=== PATIENT | male | born 1990 | race Hispanic/Latino ===

== ENCOUNTER 2018-07-30 23:18 | Observation (INO) | payer MEDICAID, OTHER ==
[2018-07-30 23:44] VITALS: BMI 43.6
[2018-07-31] MEDS ORDERED: Sodium Chloride 0.9% 1,000 ML IV STA (00:37)
--- NOTE | 2018-07-31 00:37 | ED PDOC ---
Arrival/HPI - General Historian: Patient - History of Present Illness Narrative History of Present Illness (Text): 07/31/18 00:34 28 y/o male, no significant pmh, nkda, c/o lt. sided chin swelling acutely about 1 hour ago. Pt. stated that he was eating sandwich, after eating feeling the lt. sided chin swelling, no difficulty swallowing, admits pain with the swelling, no difficulty talking, tolerating po solid and fluid, no night sweat, no rash, no dizziness, no change in vision, no other medical or psychological complaints. <Darius Graham - Last Filed: 07/31/18 10:36> <Doc Reyes - Last Filed: 08/01/18 11:53> - General Chief Complaint: ENT Problem Time Seen by Provider: 07/31/18 00:21 Past Medical History - Provider Review Nursing Documentation Reviewed: Yes - Tetanus Immunization Tetanus Immunization: Unknown - Musculoskeletal/Rheumatological Hx Gout: Yes - Psychiatric Hx Depression: No Hx Emotional Abuse: No Hx Physical Abuse: No Hx Substance Use: No - Past Surgical History Past Surgical History: No Previous - Anesthesia Hx Anesthesia: No - Suicidal Assessment Feels Threatened In Home Enviroment: No <Darius Graham - Last Filed: 07/31/18 10:36> Family/Social History - Physician Review Nursing Documentation Reviewed: Yes Family/Social History: Unknown Family HX Smoking Status: Never Smoked Hx Alcohol Use: No Hx Substance Use: No Hx Substance Use Treatment: No <Darius Graham - Last Filed: 07/31/18 10:36> Allergies/Home Meds <Darius Graham - Last Filed: 07/31/18 10:36> <Doc Reyes - Last Filed: 08/01/18 11:53> Allergies/Adverse Reactions: Allergies No Known Allergies Allergy (Verified 07/30/18 23:44) Review of Systems - Review of Systems Constitutional: absent: Fatigue, Fevers Eyes: absent: Vision Changes ENT: Other (chin swelling and pain). absent: Hearing Changes, Sore Throat, Rhinorrhea Respiratory: absent: SOB, Cough Cardiovascular: absent: Chest Pain Gastrointestinal: absent: Abdominal Pain, Diarrhea, Nausea, Vomiting Musculoskeletal: absent: Arthralgias, Back Pain Skin: absent: Rash, Pruritis Neurological: absent: Headache, Dizziness Psychiatric: absent: Anxiety, Depression, Suicidal Ideation <Darius Graham Q - Last Filed: 07/31/18 10:36> Physical Exam Vital Signs Reviewed: Yes Vital Signs Temp Pulse Resp BP Pulse Ox 07/30/18 23:44 98.6 F 82 16 153/84 H 98 Temperature: Afebrile Blood Pressure: Hypertensive Pulse: Regular Respiratory Rate: Normal Appearance: Positive for: Well-Appearing, Non-Toxic, Comfortable Pain Distress: Moderate Mental Status: Positive for: Alert and Oriented X 3 - Systems Exam Head: Present: Atraumatic, Normocephalic Pupils: Present: PERRL Extroacular Muscles: Present: EOMI Conjunctiva: Present: Normal Mouth: Present: Moist Mucous Membranes, Normal Lips, Normal Tounge, Normal Teeth. No: Drooling, Trismus Pharnyx: No: ERYTHEMA, EXUDATE, TONSILS ENLARGED, Peritonsilar Swelling, Uvular Deviation, Muffled/Hoarse Voice, Strider, Soft Palate/Uvular Edema Nose (External): Present: Atraumatic. No: Abrasion, Contusion, Laceration, Lesions Nose (Internal): Present: Normal Inspection, No Active Bleeding. No: Rhinorrhea, Septal Deviation, Septal Hematoma, Epistaxis Neck: Present: Normal Range of Motion, Trachea Midline, Other (+lt. sided chin swelling). No: Meningeal Signs, MIDLINE TENDERNESS, Paraspinal Tenderness, Bru it Respiratory/Chest: Present: Clear to Auscultation, Good Air Exchange. No: Respiratory Distress, Accessory Muscle Use Cardiovascular: Present: Regular Rate and Rhythm, Normal S1, S2. No: Murmurs Abdomen: No: Tenderness, Distention, Peritoneal Signs, Rebound, Guarding Back: Present: Normal Inspection. No: CVA Tenderness, Midline Tenderness, Paraspinal Tenderness Upper Extremity: Present: Normal Inspection. No: Cyanosis, Edema Lower Extremity: Present: Normal Inspection. No: Edema Neurological: Present: GCS=15, CN II-XII Intact, Speech Normal, Motor Func Grossly Intact, Gait Normal, Memory Normal Skin: Present: Warm, Dry, Normal Color. No: Rashes Psychiatric: Present: Alert, Oriented x 3, Normal Insight, Normal Concentration <Darius Graham Q - Last Filed: 07/31/18 10:36> Vital Signs Temp Pulse Resp BP Pulse Ox 07/30/18 23:44 98.6 F 82 16 153/84 H 98 <Doc Reyes - Last Filed: 08/01/18 11:53> Medical Decision Making ED Course and Treatment: 07/31/18 00:37 Salivary gland obstruction vs. lymphenapathy vs. abscess vs. tumor? -Labs -CT soft tissue neck -IV toradol/NS -Observe and reassess 07/31/18 03:19 -CT soft tissue neck ordered -Labs show no acute findings -Case discussed with the current ER attending Dr. Reyes, he will follow up on the pending result and continue the care for the patient. - RAD Interpretation Radiology Orders: 07/31/18 00:33 NECK SOFT TISSUE W/CONTRAST [CT] Stat - Medication Orders Current Medication Orders: Ketorolac Tromethamine (Toradol) 30 mg IVP STAT STA Stop: 07/31/18 00:35 <Darius Graham - Last Filed: 07/31/18 10:36> ED Course and Treatment: CT Soft Tissue Neck reviewed, shows: Enlarged, enhancing left submandibular gland. Prominent surrounding inflammatory fat stranding. Overlying soft tissue edema. Mildly enlarged, prominent likely reactive lymph nodes the largest measuring 1.3 cm. Normal bilateral parotid glands. Normal bilateral dance artist spaces. Normal bilateral parapharyngeal spaces. Normal bilateral carotid spaces. Normal bilateral sublingual and right submandibular glands. Normal visualized nasopharynx. Normal retropharyngeal space. Normal perivertebral space. Normal visualized bilateral faucial tonsils. The visualized tongue, tongue base and oropharynx are normal. Normal epiglottis, bilateral vallecula and hypopharynx. The pre-epiglottic and paraglottic adipose spaces are normal. Normal visualized bilateral piriform sinuses, aryepiglottic folds, vocal cords, and arytenoid-cricoid articulations. Normal subglottic trachea. Normal bilateral lobes of the thyroid gland. Normal visualized pulmonary apices . Normal visualized paranasal sinuses. Normal visualized cervical spine. IMPRESSION: Left submandibular sialadenitis. Overlying cellulitis. Reactive inflammatory lymphadenopathy. No fluid collection or drainable formation. No evidence of sialolithiasis or obstructing stone. Electronically signed on Jul 31, 2018 4:18:04 AM EDT by: Ana Lilia Rm M.D., Certified by CHARLY, MSK, Neuroradiology 07/31/18 05:05 Case discussed with medical librarian registration manager, who is aware and agrees with plan. 07/31/18 05:[address] Silviano Kaye, who is aware and agrees with plan. Accepts pt in to hospitalist service. - Lab Interpretations Lab Results: 07/31/18 01:15 07/31/18 01:30 Lab Results 07/31/18 01:30: Sodium 140, Potassium 3.9, Chloride 107, Carbon Dioxide 26, A nion Gap 12, BUN 12, Creatinine 0.9, Est GFR ( Amer) > 60, Est GFR (Non- Af Amer) > 60, Random Glucose 101, Calcium 9.1, Total Bilirubin 0.8, AST 30, ALT 44, Alkaline Phosphatase 59, Total Protein 6.5, Albumin 3.8, Globulin 2.7, Albumin/Globulin Ratio 1.4 07/31/18 01:15: WBC 7.2, RBC 5.30, Hgb 15.8, Hct 44.7, MCV 84.3, MCH 29.8, MCHC 35.3, RDW 12.3, Plt Count 187, MPV 9.5, Gran % 51.7, Lymph % (Auto) 40.2 H, Clark % (Auto) 6.6 H, Eos % (Auto) 1.4 L, Baso % (Auto) 0.1, Gran # 3.70, Lymph # ( Auto) 2.9, Clark # (Auto) 0.5, Eos # (Auto) 0.1, Baso # (Auto) 0.01 - RAD Interpretation Radiology Orders: 07/31/18 00:33 NECK SOFT TISSUE W/CONTRAST [CT] Stat - Medication Orders Current Medication Orders: Discontinued Medications Sodium Chloride (Sodium Chloride 0.9%) 1,000 mls @ 999 mls/hr IV .Q1H1M STA Stop: 07/31/18 01:37 Last Admin: 07/31/18 01:25 Dose: 999 mls/hr eMAR Start Stop Document 07/31/18 01:25 LAC (Rec: 07/31/18 01:25 LAC [id number]) Intravenous Solution Start Date 07/31/18 Start Time 01:25 End Date 07/31/18 End time 02:25 Total Infusion Time 60 Ketorolac Tromethamine (Toradol) 30 mg IVP STAT STA Stop: 07/31/18 00:35 Last Admin: 07/31/18 01:25 Dose: 30 mg MAR Pain Assessment Document 07/31/18 01:25 LAC (Rec: 07/31/18 01:25 LAC [id number] Pain Reassessment Is this a pain reassessment? No IVP Administration Document 07/31/18 01:25 LAC (Rec: 07/31/18 01:25 LAC [id number]) Charges for Administration # of IVP Administrations 1 <Doc Reyes - Last Filed: 08/01/18 11:53> - PA / SAUSAGE INSPECTOR / Resident Statement ISABELLA has reviewed & agrees with the documentation as recorded. <Darius Graham - Last Filed: 07/31/18 10:36> - PA / SAUSAGE INSPECTOR / Resident Statement ISABELLA has reviewed & agrees with the documentation as recorded. ISABELLA has examined the patient and agrees with the treatment plan. <Doc Reyes - Last Filed: 08/01/18 11:53> Disposition/Present on Arrival - Present on Arrival Any Indicators Present on Arrival: No History of DVT/PE: No History of Uncontrolled Diabetes: No Urinary Catheter: No History of Decub. Ulcer: No History Surgical Site Infection Following: None - Disposition Have Diagnosis and Disposition been Completed?: Yes Disposition Time: 03:21 Patient Plan: Admission, Observation <Darius Graham - Last Filed: 07/31/18 10:36> <Doc Reyes - Last Filed: 08/01/18 11:53> - Disposition Diagnosis: Lymph node enlargement Disposition: HOSPITALIZED Condition: STABLE
[2018-07-31 01:27] LABS: BASO # 0.01 K/mm3 (0.0-2.0); BASO % 0.1 % (0.0-3.0); EOS # 0.1 (0.0-0.7); EOS % 1.4 % (1.5-5.0); GRAN # 3.7 (1.4-6.5); GRAN % 51.7 % (50.0-68.0); HEMOGLOBIN 15.8 g/dL (14.0-18.0); LYMPH # 2.9 (1.2-3.4); LYMPH % 40.2 % (22.0-35.0); MEAN CELL VOLUME 84.3 fl (80.0-105.0); MEAN CORPUSCULAR HEMOGLOBIN 29.8 pg (25.0-35.0); MEAN CORPUSCULAR HGB CONC 35.3 g/dl (31.0-37.0); MEAN PLATELET VOLUME 9.5 fl (7.0-11.0); MONO # 0.5 (0.1-0.6); MONO % 6.6 % (1.0-6.0); RBC 5.3 10^6/uL (3.5-6.1); RED CELL DISTRIBUTION WIDTH 12.3 % (11.5-14.5); WHITE BLOOD COUNT 7.2 10^3/uL (4.5-11.0)
[2018-07-31 01:53] LABS: ALB/GLOB RATIO 1.4 (1.1-1.8); ALBUMIN 3.8 g/dL (3.0-4.8); ALT/SGPT 44 U/L (7-56); AST/SGOT 30 U/L (17-59); BLOOD UREA NITROGEN 12 mg/dL (7-21); CALCIUM 9.1 mg/dL (8.4-10.5); GFR NON-AFRICAN AMERICAN > 60
[2018-07-31] MEDS ORDERED: Iohexol 350 MG/100 ML VIAL ONE (03:08)
--- NOTE | 2018-07-31 05:13 | CP.PCM.HP ---
History of Present Illness - History of Present Illness History of Present Illness: Shira Crandall, PGY1 Hospital H&P This is a 28M with PMH of gout presenting to the ED for left sided neck swelling that began at approximately 8pm. He was a eating a sandwich at that time and felt food getting stuck in his throat. He subsequently went to bed for an hour and woke with tenderness and swelling located along the left side of his neck. He denies having any similar symptoms in the past. He denies recent trauma or recent sickness. He denies CP, SOB, difficulty swallowing, blurry vision, hearing difficulties, headaches, fevers, chills, nausea, vomiting, back pain, abdominal pain, urinary complaints, numbness, tingling and diarrhea. 12 point ROS noted here, otherwise unremarkable. In ED, CT of the neck revealed left submandibular sialadenitis and overlying cellulitis. Patient given clindamycin and 1L NS. Symptoms of pain and tenderness had resolved at time of examination in ED. PMD: [place] PMH: gout SH: denies smoking, drinking and drugs Sx: Molar removed many years ago FH: denies All: NKDA Meds: takes indomethicin/colchicine during gout flares Present on Admission - Present on Admission Any Indicators Present on Admission: No Past Patient History - Tetanus Immunizations Tetanus Immunization: Unknown - Past Social History Smoking Status: Never Smoked - MUSCULOSKELETAL/RHEUMATOLOGICAL Hx Gout: Yes - PSYCHIATRIC Hx Depression: No Hx Emotional Abuse: No Hx Physical Abuse: No Hx Substance Use: No - SURGICAL HISTORY Hx Surgeries: No - ANESTHESIA Hx Anesthesia: No Meds Allergies/Adverse Reactions: Allergies Allergy/AdvReac Type Severity Reaction Status Date / Time No Known Allergies Allergy Verified 07/30/18 23:44 Physical Exam - Constitutional Appears: No Acute Distress - Head Exam Head Exam: ATRAUMATIC, NORMAL INSPECTION - Eye Exam Eye Exam: EOMI. absent: Periorbital swelling, Periorbital tenderness Pupil Exam: PERRL - ENT Exam ENT Exam: Mucous Membranes Moist, Normal External Ear Exam, Normal Oropharynx - Neck Exam Neck exam: Positive for: Full Rom. Negative for: Lymphadenopathy, Tenderness, Thyromegaly Additional comments: No swelling, erythematous lesions appreciated. No tenderness appreciated. No difficulty initiation swallow. No pain with swallowing. No salivary pooling appreciated - Respiratory Exam Respiratory Exam: Clear to Auscultation Bilateral, NORMAL BREATHING PATTERN. absent: Accessory Muscle Use, Respiratory Distress - Cardiovascular Exam Cardiovascular Exam: REGULAR RHYTHM, +S1, +S2 - GI/Abdominal Exam GI & Abdominal Exam: Normal Bowel Sounds. absent: Firm, Guarding - Extremities Exam Extremities exam: Positive for: normal inspection. Negative for: calf tenderness - Neurological Exam Neurological exam: Alert, CN II-XII Intact, Oriented x3 - Skin Skin Exam: Normal Color, Warm Results - Vital Signs Recent Vital Signs: Last Vital Signs Temp 98.6 F 07/30/18 23:44 Pulse 82 07/30/18 23:44 Resp 16 07/30/18 23:44 BP 153/84 H 07/30/18 23:44 Pulse Ox 98 07/30/18 23:44 - Labs Result Diagrams: 07/31/18 01:15 07/31/18 01:30 Labs: Laboratory Results - last 24 hr 07/31/18 07/31/18 01:15 01:30 WBC 7.2 RBC 5.30 Hgb 15.8 Hct 44.7 MCV 84.3 MCH 29.8 MCHC 35.3 RDW 12.3 Plt Count 187 MPV 9.5 Gran % 51.7 Lymph % (Auto) 40.2 H Caroline % (Auto) 6.6 H Eos % (Auto) 1.4 L Baso % (Auto) 0.1 Gran # 3.70 Lymph # (Auto) 2.9 Caroline # (Auto) 0.5 Eos # (Auto) 0.1 Baso # (Auto) 0.01 Sodium 140 Potassium 3.9 Chloride 107 Carbon Dioxide 26 Anion Gap 12 BUN 12 Creatinine 0.9 Est GFR ( Amer) > 60 Est GFR (Non-Af Amer) > 60 Random Glucose 101 Calcium 9.1 Total Bilirubin 0.8 AST 30 ALT 44 Alkaline Phosphatase 59 Total Protein 6.5 Albumin 3.8 Globulin 2.7 Albumin/Globulin Ratio 1.4 Assessment & Plan - Assessment and Plan (Free Text) Assessment: This is a 28M with PMH of gout presenting to the ED for left sided neck swelling that began at approximately 8pm. Plan: Sialadenitis: -CT soft tissue neck showed left submandibular sialadenitis, overlying cellulitis, reactive inflammatory lymphadenopathy -afebrile, WBC WNL -procalcitonin pending -continue clindamycin -blood culture pending -toradol prn for pain -fluids -ID on consult, Dr. Abbott Hx of gout: -currently controlled PPX with heparin and pepcid Patient seen and examined with attending, Dr. Tomasa Kaye
[2018-07-31] MEDS ORDERED: Sodium Chloride 0.9% 1,000 ML IV SCH (06:00)
[2018-07-31 07:55] LABS: BASO # 0.01 K/mm3 (0.0-2.0); BASO % 0.1 % (0.0-3.0); EOS # 0.1 (0.0-0.7); EOS % 1.9 % (1.5-5.0); GRAN # 3.06 (1.4-6.5); GRAN % 45.9 % (50.0-68.0); HEMOGLOBIN 15.2 g/dL (14.0-18.0); LYMPH % 44.8 % (22.0-35.0); MEAN CELL VOLUME 84.3 fl (80.0-105.0); MEAN CORPUSCULAR HEMOGLOBIN 29.5 pg (25.0-35.0); MEAN CORPUSCULAR HGB CONC 34.9 g/dl (31.0-37.0); MEAN PLATELET VOLUME 9.1 fl (7.0-11.0); MONO # 0.5 (0.1-0.6); MONO % 7.3 % (1.0-6.0); RBC 5.16 10^6/uL (3.5-6.1); RED CELL DISTRIBUTION WIDTH 12.2 % (11.5-14.5); WHITE BLOOD COUNT 6.7 10^3/uL (4.5-11.0)
[2018-07-31 08:26] LABS: ALB/GLOB RATIO 1.4 (1.1-1.8); ALBUMIN 3.7 g/dL (3.0-4.8); ALT/SGPT 46 U/L (7-56); AST/SGOT 29 U/L (17-59); BLOOD UREA NITROGEN 13 mg/dL (7-21); CALCIUM 8.7 mg/dL (8.4-10.5); GFR NON-AFRICAN AMERICAN > 60; HDL CHOLESTEROL 33 mg/dL (29-60)
[2018-07-31 08:37] LABS: LDL CHOLESTEROL 80 mg/dL (0-129)
--- NOTE | 2018-07-31 09:15 | CT ---
Date of service: 07/31/2018 PROCEDURE: CT NECK WITH CONTRAST HISTORY: lt. sided neck/chin swelling x 1 day with pain COMPARISON: None available. TECHNIQUE: CT of the neck with intravenous contrast. Coronal and sagittal reformats generated. Intravenous contrast dose: 150 mL Visipaque 320 Radiation dose: Total exam DLP = 1095.46 mGy-cm. This CT exam was performed using one or more of the following dose reduction techniques: Automated exposure control, adjustment of the mA and/or kV according to patient size, and/or use of iterative reconstruction technique. FINDINGS: NASOPHARYNX: Within normal limits. SUPRAHYOID NECK: No mass or abnormal enhancement in the oropharynx, oral cavity, parapharyngeal space and retropharyngeal space. INFRAHYOID NECK: No mass or abnormal enhancement in the larynx, hypopharynx, and supraglottic space. Vocal cords intact. MASS: None. GLANDS: There is asymmetric enlargement and enhancement in the left submandibular gland with significant surrounding inflammatory changes in the overlying fat. No evidence for ductal dilatation or mass. Parotid and right submandibular glands unremarkable. Normal size thyroid gland, without nodule. LYMPH NODES: Reactive left submandibular adenopathy. CERVICAL SPINE: No fracture or focal lesion. VASCULAR STRUCTURES: There is normal intravascular enhancement. OTHER FINDINGS: None. IMPRESSION: Findings are most compatible with left submandibular sialadenitis and reactive submandibular lymphadenopathy. A preliminary report was provided by [employer].
[2018-07-31 17:03] VITALS: BP 122/77; PULSE 79; RESP 20; TEMP 98.1; O2SAT 95
--- NOTE | 2018-07-31 18:21 | CP.PCM.CON ---
History of Present Illness - History of Present Illness History of Present Illness: Infectious Disease Consultation: July 31, 2018 28yo Male with PMH of gout presenting to the ED for left sided neck swelling that began at approximately 8pm. He was a eating a sandwich at that time and fel t food getting stuck in his throat. He subsequently went to bed for an hour and woke with tenderness and swelling located along the left side of his neck. He denies having any similar symptoms in the past. He denies recent trauma or recent sickness. He denies CP, SOB, difficulty swallowing, blurry vision, hearing difficulties, headaches, fevers, chills, nausea, vomiting, back pain, abdominal pain, urinary complaints, numbness, tingling and diarrhea. In ED, CT of the neck revealed left submandibular sialadenitis and overlying cellulitis. Patient given clindamycin and 1L NS. Symptoms of pain and tenderness had resolved at this time. PMHx: Gout PSHx: Molar removal several years ago Allergies: NKDA Social Hx: No tobacco, EtOH, or illicit drug use Active Medications Famotidine (Pepcid) 20 mg PO 1000,2200 BRITT Last Admin: 07/31/18 10:19 Dose: Not Given Heparin Sodium (Porcine) (Heparin) 5,000 units SC Q12 BRITT; Protocol Last Admin: 07/31/18 09:05 Dose: Not Given Clindamycin Phosphate 900 mg/ (Sodium Chloride) 106 mls @ 106 mls/hr IVPB Q8 BRITT; Protocol Last Admin: 07/31/18 13:01 Dose: 106 mls/hr Sodium Chloride (Sodium Chloride 0.9%) 1,000 mls @ 100 mls/hr IV .Q10H BRITT Last Admin: 07/31/18 06:25 Dose: 100 mls/hr Ketorolac Tromethamine (Toradol) 15 mg IVP Q6 PRN PRN Reason: Pain, severe (8-10) Family Hx: None given ROS: No fevers, chills, nausea, vomiting, diarrhea, headaches, dizziness, chest pain, abdominal pain, melena, hematuria, hematemesis, hematochezia, depresion, anxiety. Past Patient History - Tetanus Immunizations Tetanus Immunization: Unknown - Past Social History Smoking Status: Never Smoked - MUSCULOSKELETAL/RHEUMATOLOGICAL Hx Gout: Yes - PSYCHIATRIC Hx Depression: No Hx Emotional Abuse: No Hx Physical Abuse: No Hx Substance Use: No - SURGICAL HISTORY Hx Surgeries: No - ANESTHESIA Hx Anesthesia: No Meds Allergies/Adverse Reactions: Allergies Allergy/AdvReac Type Severity Reaction Status Date / Time No Known Allergies Allergy Verified 07/30/18 23:44 - Medications Medications: Current Medications Famotidine (Pepcid) 20 mg PO 1000,2200 BRITT Last Admin: 07/31/18 10:19 Dose: Not Given Heparin Sodium (Porcine) (Heparin) 5,000 units SC Q12 BRITT; Protocol Last Admin: 07/31/18 09:05 Dose: Not Given Clindamycin Phosphate 900 mg/ (Sodium Chloride) 106 mls @ 106 mls/hr IVPB Q8 BRITT; Protocol Last Admin: 07/31/18 13:01 Dose: 106 mls/hr Sodium Chloride (Sodium Chloride 0.9%) 1,000 mls @ 100 mls/hr IV .Q10H BRITT Last Admin: 07/31/18 06:25 Dose: 100 mls/hr Ketorolac Tromethamine (Toradol) 15 mg IVP Q6 PRN PRN Reason: Pain, severe (8-10) Physical Exam - Constitutional Appears: Non-toxic, No Acute Distress - Head Exam Head Exam: ATRAUMATIC, NORMOCEPHALIC - Eye Exam Eye Exam: EOMI, PERRL Pupil Exam: NORMAL ACCOMODATION, PERRL - ENT Exam ENT Exam: Mucous Membranes Moist, Normal External Ear Exam, TM's Normal Bilaterally - Neck Exam Neck exam: Positive for: Full Rom, Normal Inspection - Respiratory Exam Respiratory Exam: Clear to Auscultation Bilateral, NORMAL BREATHING PATTERN. absent: Rales, Rhonchi, Wheezes - Cardiovascular Exam Cardiovascular Exam: REGULAR RHYTHM, RRR, +S1, +S2 - GI/Abdominal Exam GI & Abdominal Exam: Normal Bowel Sounds, Soft. absent: Distended, Tenderness - Extremities Exam Extremities exam: Positive for: full ROM, normal inspection - Neurological Exam Neurological exam: Alert, CN II-XII Intact, Oriented x3 - Psychiatric Exam Psychiatric exam: Normal Affect, Normal Mood - Skin Skin Exam: Intact, Normal Color Results - Vital Signs Recent Vital Signs: Last Vital Signs Temp 98.1 F 07/31/18 16:59 Pulse 79 07/31/18 16:59 Resp 20 07/31/18 16:59 BP 122/77 07/31/18 16:59 Pulse Ox 95 07/31/18 16:59 - Labs Result Diagrams: 07/31/18 07:00 07/31/18 07:00 Labs: Laboratory Results - last 24 hr 07/31/18 07/31/18 07/31/18 01:15 01:30 07:00 WBC 7.2 RBC 5.30 Hgb 15.8 Hct 44.7 MCV 84.3 MCH 29.8 MCHC 35.3 RDW 12.3 Plt Count 187 MPV 9.5 Gran % 51.7 Lymph % (Auto) 40.2 H Cooper % (Auto) 6.6 H Eos % (Auto) 1.4 L Baso % (Auto) 0.1 Gran # 3.70 Lymph # (Auto) 2.9 Cooper # (Auto) 0.5 Eos # (Auto) 0.1 Baso # (Auto) 0.01 APTT Sodium 140 Potassium 3.9 Chloride 107 Carbon Dioxide 26 Anion Gap 12 BUN 12 Creatinine 0.9 Est GFR ( Amer) > 60 Est GFR (Non-Af Amer) > 60 Random Glucose 101 Hemoglobin A1c Calcium 9.1 Phosphorus Magnesium Total Bilirubin 0.8 AST 30 ALT 44 Alkaline Phosphatase 59 Total Protein 6.5 Albumin 3.8 Globulin 2.7 Albumin/Globulin Ratio 1.4 Triglycerides Cholesterol LDL Cholesterol Direct HDL Cholesterol Procalcitonin < 0.05 L 07/31/18 07/31/18 07/31/18 07:00 07:00 07:00 WBC 6.7 RBC 5.16 Hgb 15.2 Hct 43.5 MCV 84.3 MCH 29.5 MCHC 34.9 RDW 12.2 Plt Count 162 MPV 9.1 Gran % 45.9 L Lymph % (Auto) 44.8 H Cooper % (Auto) 7.3 H Eos % (Auto) 1.9 Baso % (Auto) 0.1 Gran # 3.06 Lymph # (Auto) 3.0 Cooper # (Auto) 0.5 Eos # (Auto) 0.1 Baso # (Auto) 0.01 APTT 33.6 Sodium 139 Potassium 4.0 Chloride 106 Carbon Dioxide 25 Anion Gap 12 BUN 13 Creatinine 1.0 Est GFR ( Amer) > 60 Est GFR (Non-Af Amer) > 60 Random Glucose 94 Hemoglobin A1c Calcium 8.7 Phosphorus 4.0 Magnesium 1.8 Total Bilirubin 1.2 AST 29 ALT 46 Alkaline Phosphatase 52 Total Protein 6.3 Albumin 3.7 Globulin 2.7 Albumin/Globulin Ratio 1.4 Triglycerides 182 H Cholesterol 125 L LDL Cholesterol Direct 80 HDL Cholesterol 33 Procalcitonin 07/31/18 07:00 WBC RBC Hgb Hct MCV MCH MCHC RDW Plt Count MPV Gran % Lymph % (Auto) Cooper % (Auto) Eos % (Auto) Baso % (Auto) Gran # Lymph # (Auto) Cooper # (Auto) Eos # (Auto) Baso # (Auto) APTT Sodium Potassium Chloride Carbon Dioxide Anion Gap BUN Creatinine Est GFR ( Amer) Est GFR (Non-Af Amer) Random Glucose Hemoglobin A1c 5.2 Calcium Phosphorus Magnesium Total Bilirubin AST ALT Alkaline Phosphatase Total Protein Albumin Globulin Albumin/Globulin Ratio Triglycerides Cholesterol LDL Cholesterol Direct HDL Cholesterol Procalcitonin Assessment & Plan - Assessment and Plan (Free Text) Assessment: 28 yo male with soft tissue swelling of the neck with CT showing left submandibular sialadenitis, overlying cellulitis, reactive inflammatory lymphad enopathy. Started on Clindamycin for antibiotic care. Agree with continuing on Clindamycin for treatment at this time. Supportive care. Thank you for allowing me to participate in the care of this patient, we will follow with you.
--- NOTE | 2018-08-01 07:19 | CP.PCM.DIS ---
<Luis Arce - Last Filed: 08/01/18 07:19> Provider - Provider Date of Admission: 07/31/18 04:53 Attending physician: Everton Ricardo MD Primary care physician: Jaylyn Hollis DO Consults: ID: Dr. [email or web address] Abbott Time Spent in preparation of Discharge (in minutes): 60 Hospital Course - Lab Results Lab Results: Most Recent Lab Values WBC 6.7 10^3/uL (4.5-11.0) 07/31/18 07:00 RBC 5.16 10^6/uL (3.5-6.1) 07/31/18 07:00 Hgb 15.2 g/dL (14.0-18.0) 07/31/18 07:00 Hct 43.5 % (42.0-52.0) 07/31/18 07:00 MCV 84.3 fl (80.0-105.0) 07/31/18 07:00 MCH 29.5 pg (25.0-35.0) 07/31/18 07:00 MCHC 34.9 g/dl (31.0-37.0) 07/31/18 07:00 RDW 12.2 % (11.5-14.5) 07/31/18 07:00 Plt Count 162 10^3/uL (120.0-450.0) 07/31/18 07:00 MPV 9.1 fl (7.0-11.0) 07/31/18 07:00 Gran % 45.9 % (50.0-68.0) L 07/31/18 07:00 Lymph % (Auto) 44.8 % (22.0-35.0) H 07/31/18 07:00 [place] % (Auto) 7.3 % (1.0-6.0) H 07/31/18 07:00 Eos % (Auto) 1.9 % (1.5-5.0) 07/31/18 07:00 Baso % (Auto) 0.1 % (0.0-3.0) 07/31/18 07:00 Gran # 3.06 (1.4-6.5) 07/31/18 07:00 Lymph # (Auto) 3.0 (1.2-3.4) 07/31/18 07:00 [place] # (Auto) 0.5 (0.1-0.6) 07/31/18 07:00 Eos # (Auto) 0.1 (0.0-0.7) 07/31/18 07:00 Baso # (Auto) 0.01 K/mm3 (0.0-2.0) 07/31/18 07:00 APTT 33.6 Seconds (25.1-36.5) 07/31/18 07:00 Sodium 139 mmol/L (132-148) 07/31/18 07:00 Potassium 4.0 mmol/L (3.6-5.0) 07/31/18 07:00 Chloride 106 mmol/L (98-107) 07/31/18 07:00 Carbon Dioxide 25 mmol/L (21-33) 07/31/18 07:00 Anion Gap 12 (10-20) 07/31/18 07:00 BUN 13 mg/dL (7-21) 07/31/18 07:00 Creatinine 1.0 mg/dl (0.8-1.5) 07/31/18 07:00 Est GFR ( Amer) > 60 07/31/18 07:00 Est GFR (Non-Af Amer) > 60 07/31/18 07:00 Random Glucose 94 mg/dL (70-110) 07/31/18 07:00 Hemoglobin A1c 5.2 % (4.2-6.5) 07/31/18 07:00 Calcium 8.7 mg/dL (8.4-10.5) 07/31/18 07:00 Phosphorus 4.0 mg/dL (2.5-4.5) 07/31/18 07:00 Magnesium 1.8 mg/dL (1.7-2.2) 07/31/18 07:00 Total Bilirubin 1.2 mg/dL (0.2-1.3) 07/31/18 07:00 AST 29 U/L (17-59) 07/31/18 07:00 ALT 46 U/L (7-56) 07/31/18 07:00 Alkaline Phosphatase 52 U/L (38-126) 07/31/18 07:00 Total Protein 6.3 g/dL (5.8-8.3) 07/31/18 07:00 Albumin 3.7 g/dL (3.0-4.8) 07/31/18 07:00 Globulin 2.7 gm/dL 07/31/18 07:00 Albumin/Globulin Ratio 1.4 (1.1-1.8) 07/31/18 07:00 Triglycerides 182 mg/dL (35-160) H 07/31/18 07:00 Cholesterol 125 mg/dL (130-200) L 07/31/18 07:00 LDL Cholesterol Direct 80 mg/dL (0-129) 07/31/18 07:00 HDL Cholesterol 33 mg/dL (29-60) 07/31/18 07:00 Procalcitonin < 0.05 NG/ML (0.19-0.49) L 07/31/18 07:00 - Hospital Course Hospital Course: 28M with PMH of gout presenting to the ED for left sided neck swelling that began at approximately 8pm on Thursday. He was a eating a sandwich at that time and felt food getting stuck in his throat. He subsequently went to bed for an hour and woke with tenderness and swelling located along the left side of his neck. He denied having any similar symptoms in the past. He denied any recent sickness or trauma. Patient denied CP, SOB, difficulty swallowing, blurry vision, hearing difficulties, headaches, fevers, chills, nausea, vomiting, back pain, abdominal pain, urinary complaints, numbness, tingling and diarrhea. CT soft tissue of the neck was done showing left submandibular sialadenitis. Patient was given medication for pain, started on Clindamycin and Infectious disease was consulted. Blood cultures were done and lab work was reviewed. Patients pain improved during his day yesterday and patient was discharged home late yesterday evening on clindamycin 3x a day for a total 10 day course. He was told to follow up with PMD and see a dentist as soon as possible. Discharge Exam - Head Exam Head Exam: ATRAUMATIC, NORMOCEPHALIC - Eye Exam Eye Exam: EOMI, Normal appearance, PERRL - ENT Exam ENT Exam: Mucous Membranes Moist, Normal External Ear Exam - Neck Exam Neck exam: Tenderness - Respiratory Exam Respiratory Exam: NORMAL BREATHING PATTERN, UNREMARKABLE - Cardiovascular Exam Cardiovascular Exam: REGULAR RHYTHM, +S1, +S2 - GI/Abdominal Exam GI & Abdominal Exam: Normal Bowel Sounds, Soft. absent: Tenderness - Extremities Exam Extremities exam: full ROM, pedal pulses present - Neurological Exam Neurological exam: Alert, CN II-XII Intact, Oriented x3 - Skin Skin Exam: Intact, Warm Discharge Plan - Discharge Medications Prescriptions: Clindamycin [Cleocin] 300 mg PO Q8 #30 cap - Follow Up Plan Condition: STABLE Disposition: HOME/ ROUTINE Instructions: Cellulitis and Erysipelas (Skin Infections) Additional Instructions: please take antibiotics clindamycin 300mg every 8 hours for 10 days. please follow up with PMD, and follow up with dentist. apply warm compress to area if needed. please return to the emergency room if pain or if difficulty swallowing or breathing. Referrals: Jaylyn Hollis DO [Primary Care Provider] - <Everton Ricardo - Last Filed: 08/01/18 07:38> Provider - Provider Date of Admission: 07/31/18 04:53 Attending physician: Everton Ricardo MD Primary care physician: Jaylyn Hollis DO Hospital Course - Lab Results Lab Results: Most Recent Lab Values WBC 6.7 10^3/uL (4.5-11.0) 07/31/18 07:00 RBC 5.16 10^6/uL (3.5-6.1) 07/31/18 07:00 Hgb 15.2 g/dL (14.0-18.0) 07/31/18 07:00 Hct 43.5 % (42.0-52.0) 07/31/18 07:00 MCV 84.3 fl (80.0-105.0) 07/31/18 07:00 MCH 29.5 pg (25.0-35.0) 07/31/18 07:00 MCHC 34.9 g/dl (31.0-37.0) 07/31/18 07:00 RDW 12.2 % (11.5-14.5) 07/31/18 07:00 Plt Count 162 10^3/uL (120.0-450.0) 07/31/18 07:00 MPV 9.1 fl (7.0-11.0) 07/31/18 07:00 Gran % 45.9 % (50.0-68.0) L 07/31/18 07:00 Lymph % (Auto) 44.8 % (22.0-35.0) H 07/31/18 07:00 [place] % (Auto) 7.3 % (1.0-6.0) H 07/31/18 07:00 Eos % (Auto) 1.9 % (1.5-5.0) 07/31/18 07:00 Baso % (Auto) 0.1 % (0.0-3.0) 07/31/18 07:00 Gran # 3.06 (1.4-6.5) 07/31/18 07:00 Lymph # (Auto) 3.0 (1.2-3.4) 07/31/18 07:00 [place] # (Auto) 0.5 (0.1-0.6) 07/31/18 07:00 Eos # (Auto) 0.1 (0.0-0.7) 07/31/18 07:00 Baso # (Auto) 0.01 K/mm3 (0.0-2.0) 07/31/18 07:00 APTT 33.6 Seconds (25.1-36.5) 07/31/18 07:00 Sodium 139 mmol/L (132-148) 07/31/18 07:00 Potassium 4.0 mmol/L (3.6-5.0) 07/31/18 07:00 Chloride 106 mmol/L (98-107) 07/31/18 07:00 Carbon Dioxide 25 mmol/L (21-33) 07/31/18 07:00 Anion Gap 12 (10-20) 07/31/18 07:00 BUN 13 mg/dL (7-21) 07/31/18 07:00 Creatinine 1.0 mg/dl (0.8-1.5) 07/31/18 07:00 Est GFR ( Amer) > 60 07/31/18 07:00 Est GFR (Non-Af Amer) > 60 07/31/18 07:00 Random Glucose 94 mg/dL (70-110) 07/31/18 07:00 Hemoglobin A1c 5.2 % (4.2-6.5) 07/31/18 07:00 Calcium 8.7 mg/dL (8.4-10.5) 07/31/18 07:00 Phosphorus 4.0 mg/dL (2.5-4.5) 07/31/18 07:00 Magnesium 1.8 mg/dL (1.7-2.2) 07/31/18 07:00 Total Bilirubin 1.2 mg/dL (0.2-1.3) 07/31/18 07:00 AST 29 U/L (17-59) 07/31/18 07:00 ALT 46 U/L (7-56) 07/31/18 07:00 Alkaline Phosphatase 52 U/L (38-126) 07/31/18 07:00 Total Protein 6.3 g/dL (5.8-8.3) 07/31/18 07:00 Albumin 3.7 g/dL (3.0-4.8) 07/31/18 07:00 Globulin 2.7 gm/dL 07/31/18 07:00 Albumin/Globulin Ratio 1.4 (1.1-1.8) 07/31/18 07:00 Triglycerides 182 mg/dL (35-160) H 07/31/18 07:00 Cholesterol 125 mg/dL (130-200) L 07/31/18 07:00 LDL Cholesterol Direct 80 mg/dL (0-129) 07/31/18 07:00 HDL Cholesterol 33 mg/dL (29-60) 07/31/18 07:00 Procalcitonin < 0.05 NG/ML (0.19-0.49) L 07/31/18 07:00 Attending/Attestation - Attestation I have personally seen and examined this patient.: Yes I have fully participated in the care of the patient.: Yes I have reviewed all pertinent clinical information, including history, physical exam and plan: Yes Notes (Text): 08/01/18 07:35 28 year old male who presented with left side neck pain while eating a sandwich. He was found to have left submandibular sialadenitis on CT scan and started on iv antibiotics. He was seen by ID. His symptoms improved and he was discharged on po clindamycin. Follow up with pmd and dentist. Continue with po antibiotics. If symptoms persistent consider ENT evaluation. Everton Ricardo MD Hospitalist.
== END 2018-07-31 20:11 | disposition home or self-care (01) ==
LOC: ED 23:18 → ERH 07-31 04:53 → 3RSO 07-31 06:52
PROVIDERS: ADMIT Hospitalist; ATTEND Internal Medicine
DX: K11.20 Sialoadenitis, unspecified (principal); K12.2 Cellulitis and abscess of mouth
CPT/HCPCS: 36415; 70491; 80053; 80061; 83036; 83735; 84100; 84145; 85025; 85730; 87040; 96361; 96365; 96366; 96375; 99285; G0378; J1885; J7030; Q9967